=== PATIENT | male | born 1970 | race African-American/Black ===

== ENCOUNTER 2019-09-29 09:39 | Inpatient (IN) ==
[2019-09-29 10:06] LABS: URINE SOURCE CLEAN CATCH
[2019-09-29 10:08] LABS: BASO# 0.03 X1000 (0.0-0.2); BASO% 0.2 % (0.0-0.8); EOS# 0.17 X1000 (0.0-0.7); HEMATOCRIT 44.2 % (42.0-52.0); HEMOGLOBIN 14.7 g/dL (14.0-18.0); IMM GRAN# 0.04 X1000 (0.0-0.04); IMM GRAN% 0.2 % (0.0-0.5); LYMPH# 4.17 X1000 (1.2-3.4); LYMPH% 25.3 % (20.5-51.1); MCH 28.7 PG (27-31); MCHC 33.3 g/dL (33-37); MCV 86.2 FL (81-99); MONO# 1.33 X1000 (0.11-0.59); MONO% 8.1 % (1.7-9.3); MPV 10.4 FL (7.4-10.4); NEUT# 10.71 X1000 (1.4-6.5); NEUT% 65.2 % (42.2-75.2); PLT 265 X1000 (130-400); RBC 5.13 XMIL (4.7-6.1); RDW 14.5 % (11.5-14.5); WBC 16.45 X1000 (4.8-10.8)
[2019-09-29 10:11] LABS: BILIRUBIN URINE NEGATIVE (NEGATIVE); BLOOD URINE NEGATIVE (NEGATIVE); COLOR YELLOW; GLUCOSE URINE NEGATIVE (NEGATIVE); KETONE URINE NEGATIVE (NEGATIVE); LEUKOCYTES URINE NEGATIVE (NEGATIVE); NITRITE URINE NEGATIVE (NEGATIVE); PH URINE 5.5; PROTEIN URINE NEGATIVE (NEGATIVE); SP GRAVITY URINE 1.017; TURBIDITY URINE CLEAR (CLEAR); UROBILINOGEN URINE NORMAL (NORMAL)
[2019-09-29 10:13] LABS: UR EPITHELIAL CELLS <10 /HPF (<10); URINE BACTERIA NEGATIVE /HPF; URINE RBC <10 /HPF (<10); URINE WBC <10 /HPF (<10)
[2019-09-29] MEDS ORDERED: PROTONIX IV ONE (10:30)
[2019-09-29] MEDS ORDERED: SODIUM CHLORIDE 0.9% INJ ONE (10:30)
[2019-09-29] MEDS ORDERED: NS 1,000 ML IV ONE ×2 (10:30→14:48)
[2019-09-29] MEDS ORDERED: ZOFRAN IV ONE (10:30)
[2019-09-29] MEDS ORDERED: MORPHINE IV ONE ×2 (10:33→13:09)
[2019-09-29 10:45] LABS: AGAP 14; ALBUMIN 4.5 g/dL (3.5-5.0); ALKALINE PHOSPHATASE 86 U/L (32-122); BUN 18 mg/dL (8-22); CALCIUM 9.3 mg/dL (8.8-10.2); CHLORIDE 101 mmol/L (98-107); COSMO 275; CREATININE 0.8 mg/dL (0.7-1.2); ESTIMATED GFR > 60; GLUCOSE 119 mg/dL (70-104); GOT 28 U/L (10-34); GPT 33 U/L (10-44); LIPASE 25 U/L (13-60); POTASSIUM 4.6 mmol/L (3.5-5.1); SODIUM 136 mmol/L (136-145); TCO2 21 mmol/L (25-35); TOTAL PROTEIN 7.9 g/dL (6.3-8.3)
--- NOTE | 2019-09-29 11:41 | Diag Imaging Result Doc PS360 ---
EXAM: CHEST-1 VIEW HISTORY: epigastric pain TECHNIQUE: Single view COMPARISON: None. FINDINGS: The lungs are well expanded. The heart is not enlarged. The vessels are not distended. There are no infiltrates. No effusion identified. IMPRESSION: Negative exam. Electronically signed by Jose English 09/29/2019 11:39 AM
--- NOTE | 2019-09-29 11:41 | Diag Imaging Result Doc PS360 ---
EXAM: CT ABD/PELVIS W/IV CONT ONLY HISTORY: abd pain TECHNIQUE: CT abdomen and pelvis with intravenous contrast, but without oral contrast. COMPARISON: None. FINDINGS: There is fatty infiltration of the liver. No calcified gallstones or adjacent inflammation. No splenomegaly. Normal pancreas and adrenal glands. There are scattered bilateral renal cysts. The largest on the right measures 4.4 cm and the largest on the left measures 2.9 cm. There is a 2 mm nonobstructing left upper pole renal stone. No hydronephrosis. Normal aorta. There are scattered colonic diverticula and there is wall thickening with adjacent inflammation in the distal descending and sigmoid junction. Tiny amount of adjacent free air. No abscess. No bowel obstruction. Normal appendix. Urinary bladder is moderately distended and normal. Normal prostate. There is a fat filled left inguinal hernia. IMPRESSION: 1.Distal colonic diverticulitis with small focal perforation, but no abscess 2.Nonobstructing left renal stone 3.Renal cysts 4.There is fatty infiltration of the liver 5.Fat filled left inguinal hernia This report was discussed with Dr. Montoya in the emergency room on 09/29/2019 at 11:35 AM and was readback. This exam was performed using automated exposure control, adjustment of mA or kV according to patient size, and/or use of iterative reconstruction technique. Electronically signed by Jose English 09/29/2019 11:38 AM
[2019-09-29] MEDS ORDERED: CIPRO 400 MG/D5W 400 MG/200 ML IVPB IV ONE (11:56)
[2019-09-29] MEDS ORDERED: FLAGYL 500 MG/NS 500 MG/100 ML IVPB IV ONE (11:56)
--- NOTE | 2019-09-29 13:15 | PROVIDER DOCUMENTATION ---
This chart was entered by Aminata Perea Scribe, acting as scribe for Dmitri Montoya MD. HPI-Abdominal Pain/GI Problem - General Chief Complaint: Abdominal Pain Stated Complaint: ABD PAIN Time Seen by Provider: 09/29/19 09:48 Source: patient, other (SO) Allergies/Adverse Reactions: Patient Allergies Allergy/AdvReac Type Severity Reaction Status Date / Time Penicillins Allergy Unknown Verified 09/29/19 09:49 Home Medications: Home Medication List Medication Instructions Recorded Confirmed Last Taken Type AMLODIPINE/BENAZEpril [Lotrel 02/1409/29/19 09/29/19 Unknown History mg] Pravastatin Sodium 09/29/19 09/29/19 Unknown History Sildenafil Citrate 09/29/19 09/29/19 Unknown History - History of Present Illness-ABD Nature of Presenting Problems: 49 yobm presents to the ed with c/o LLQ abdominal pain that radiates across lower abdomen acute onset 0200am. pt denies n/v/d and sts had normal BM yesterday. pt is in moderate pain on exam and palpation or movement makes worse. pt does have a noted cough and sts has been present "for a while" Abdominal Pain Onset Location: reports: LLQ Pain Radiation: reports: RLQ, periumbilical Quality of Pain: reports: aching Severity in ED: reports: moderate Onset/Duration: reports: this morning (0200) Timing: reports: still present, constant, getting worse Activities at Onset: reports: sleep Exposure to sick contacts?: No Modifying Factors: improves with: nothing. worse with: coughing, movement, palpation Associated Symptoms: reports: cough. denies: back/neck pain, chest pain, co nstipation, diarrhea, fever/chills, nausea, shortness of breath, vomiting Last BM: other (yesterday and pt sts normal) Dark Stools Present?: reports: none noticed Rectal Bleeding: reports: none # of Diarrhea Episodes: 0 Rectal Pain: reports: none # of Vomiting Episodes: 0 Emesis Description: reports: none Bruising or Bleeding Gums?: No Similar Symptoms Previously?: No Review of Systems - Adult - REVIEW OF SYSTEMS - ADULT Constitutional: denies: chills, fever Eyes: reports: no symptoms reported Ears, Nose, Mouth & Throat: reports: no symptoms reported Cardiovascular: denies: chest pain, palpitations, syncope Respiratory: denies: cough, shortness of breath, wheezing Gastrointestinal: reports: see HPI, abdominal pain. denies: diarrhea, nausea, vomiting Genitourinary: reports: no symptoms reported Musculoskeletal: denies: back pain, neck pain Integumentary: reports: no symptoms reported Neurological: denies: dizziness/vertigo, headache/migraines Psychiatric: reports: no symptoms reported Endocrine: reports: no symptoms reported Hematologic/Lymphatic: reports: no symptoms reported Allergic/Immunologic: reports: no symptoms reported All Other Systems: Reviewed and Negative Past History - Adult - PAST MEDICAL HISTORY-ADULT Review of Records: reports: Old Records Reviewed, Nursing Assessment Review, Medications Reviewed, Social history reviewed & non-contributory. Major Childhood Illnesses: reports: denies history Cardiovascular: reports: HTN Respiratory: reports: denies history Gastrointestinal: reports: denies history Genitourinary: reports: denies history Musculoskeletal: reports: denies history Neurological: reports: denies history Psychiatric: reports: denies history Endocrine/Immune: reports: denies history Other Conditions: reports: denies history - PRIOR SURGERIES/PROCEDURES Surgical/Procedure History: reports: orthopedic (extremity) - IMMUNIZATION STATUS Childhood Immunizations: See Nurse Assessment Flu Vaccine: See Nurse Assessment - FAMILY HISTORY Family History: reviewed, not pertinent - SOCIAL HISTORY Smoking: quit less than 1 year Substance Use: alcohol Alcohol Use Frequency: 2-3 times a month Number of drinks per typical drinking period:: 3-4 drinks Living Situation: family Physical Exam-General - PHYSICAL EXAM-ADULT Initial Vital Signs Reviewed: Yes - CONSTITUTIONAL General Appearance: alert, moderate distress, obese - EYES Eyes: PERRL/EOMI, pink conjunctivae - HEAD, EARS, NOSE, MOUTH & THROAT HENMT: moist mucous membranes - NECK Neck: non-tender, full range of motion, supple, normal inspection - RESPIRATORY Respiratory: chest non-tender, lungs clear, normal breath sounds, other (pr oductive cough on exam) - CARDIOVASCULAR Cardiovascular: normal peripheral pulses, regular rate, rhythm - CHEST (BREASTS) Chest/Breast: deferred - GASTROINTESTINAL (ABDOMEN) Abdominal Exam: soft, guarding, tenderness. negative: rigid, rebound - GENITOURINARY Male Genitalia: deferred Rectal Exam: deferred Hemoccult Exam: deferred - LYMPHATIC Lymphatic: no adenopathy - MUSCULOSKELETAL Back Exam: normal inspection, no CVA tenderness, no vertebral tenderness Extremity: normal range of motion, non-tender, normal gait, normal inspection - SKIN Integumentary: normal color, normal turgor, warm/dry - NEUROLOGIC Neurologic: grossly normal - PSYCHIATRIC Psych/Mental Status: normal mood/affect, normal thought content, normal thought process, oriented x 3 Progress - PLAN OF CARE/RESULTS Progress/Plan/Lab Results: Vital Signs - 8 hr 09/29/19 09:46 Temperature 97.3 F L Pulse Rate 72 Respiratory Rate 20 Blood Pressure 130/87 O2 Sat by Pulse Oximetry 95 Laboratory Results - last 24 hr 09/29/19 09/29/19 09:56 10:02 WBC 16.45 H RBC 5.13 Hgb 14.7 Hct 44.2 MCV 86.2 MCH 28.7 MCHC 33.3 RDW Std Deviation 14.5 Plt Count 265 MPV 10.4 Immature Gran % (Auto) 0.2 Neut % (Auto) 65.2 Lymph % (Auto) 25.3 [place] % (Auto) 8.1 Eos % (Auto) 1.0 Baso % (Auto) 0.2 Immature Gran # (Auto) 0.04 Neut # (Auto) 10.71 H Lymph # (Auto) 4.17 H [place] # (Auto) 1.33 H Eos # (Auto) 0.17 Baso # (Auto) 0.03 Urine Source CLEAN CATCH Urine Color YELLOW Urine Turbidity CLEAR Urine pH 5.5 Ur Specific [place] 1.017 Urine Protein NEGATIVE Ur Glucose (Stick) NEGATIVE Ur Ketones (Stick) NEGATIVE Urine Blood NEGATIVE Urine Nitrite NEGATIVE Urine Bilirubin NEGATIVE Urobilinogen Dipstick NORMAL Urine Leukocytes NEGATIVE Urine WBC (Auto) <10 Urine RBC (Auto) <10 U Epithel Cells (Auto) <10 Urine Bacteria (Auto) NEGATIVE Orders Category Date Time Status Saline Loc DIRECTED Care 09/29/19 09:50 Active NPO Diet 09/29/19 09:50 Active AMYLASE [CHEM] Stat Lab 09/29/19 10:02 Received CBC WITH ELECTRONIC DIFF [HEME] Stat Lab 09/29/19 10:02 Completed COMPREHENSIVE METABOLIC PANEL [CHEM] Stat Lab 09/29/19 10:02 Received LIPASE [CHEM] Stat Lab 09/29/19 10:02 Received URINALYSIS W/POSS RFLX CULT [URINALYSIS] Stat Lab 09/29/19 09:56 Completed Result Diagrams: 09/29/19 10:02 09/29/19 10:02 - REASSESSMENT Reassessment #1 Time Reassessed: 11:18 (pain has improved ) Status: improving Reassessment Comment: at bedside - EKG 1 Time of EKG reading by physician:: 11:11 EKG Read and Signed by:: Dmitri Montoya EKG Interpretation (*Must complete 3 of following elements*): Normal Rate: 81 Rhythm: nsr Jay: normal QRS: normal AL Interval: normal ST Wave: normal - XRAY 1 XRAY: Bilateral XRAY Study: Chest Impression: See EMR Report (EXAM: CHEST-1 VIEW HISTORY: epigastric pain TECHNIQUE: Single view COMPARISON: None. FINDINGS: The lungs are well expanded. The heart is not enlarged. The vessels are not distended. There are no infiltrates. No effusion identified. IMPRESSION: Negative exam. Electronically signed by Jsoe English 09/29/2019 11:39 AM 09/29/19 1139 Interpreting Physician: Jose English MD Dictated Date/Time: 09/29/19 1138 cc: Dmitri Montoya MD; Farrukh Marks MD) - CT/MRI 1 CT Study: Abdomen, Pelvis Impression: See EMR Report (EXAM: CT ABD/PELVIS W/IV CONT ONLY HISTORY: abd pain TECHNIQUE: CT abdomen and pelvis with intravenous contrast, but without oral contrast. COMPARISON: None. FINDINGS: There is fatty infiltration of the liver. No calcified gallstones or adjacent inflammation. No splenomegaly. Normal pancreas and adrenal glands. There are scattered bilateral renal cysts. The largest on the right measures 4.4 cm and the largest on the left measures 2.9 cm. There is a 2 mm nonobstructing left upper pole renal stone. No hydronephrosis. Normal aorta. There are scattered colonic diverticula and there is wall thickening with adjacent inflammation in the distal descending and sigmoid junction. Tiny amount of adjacent free air. No abscess. No bowel obstruction. Normal appendix. Urinary bladder is moderately distended and normal. Normal prostate. There is a fat filled left inguinal hernia. IMPRESSION: 1.Distal colonic diverticulitis with small focal perforation, but no abscess 2.Nonobstructing left renal stone 3.Renal cysts 4.There is fatty infiltration of the liver 5.Fat filled left inguinal hernia This report was discussed with Dr. Montoya in the emergency room on 09/29/2019 at 11:35 AM and was readback. This exam was performed using automated exposure control, adjustment of mA or kV according to patient size, and/or use of iterative reconstruction technique. Electronically signed by Jose English 09/29/2019 11:38 AM 09/29/19 1138 Interpreting Physician: Jose English MD Dictated Date/Time: 09/29/19 1134 cc: Dmitir Montoya MD; Farrukh Marks MD) - CONSULTS/PCP/HOSPITALIST Notification #1 *Consult/PCP/Hospitalist*: dr alberto moreno Time Discussed: 12:27 (will consult) Reason/Comments: phone consult #2 Consult: hospitalist dr caceres Time Discussed: 12:23 Reason/Comments: phone consult Consult Disposition: Admit #3 Consult: Dr Perea called back Time Discussed: 13:13 (will speak with dr caceres ) Reason/Comments: wants pt to be transfered to [facility] Consult Disposition: Admit (advised admit in [facility]) Departure - Departure Date of Disposition Decision: 09/29/19 Time of Disposition Decision: 12:00 DIAGNOSIS: Diverticulitis, Abdominal pain, Diverticulitis of colon with perforation Disposition: ADMITTED INPATIENT 09 Certified Medical Emergency: Emergent Condition: Stable Referrals and Follow-Ups: Farrukh Marks MD [Primary Care Provider] - - Critical Care Note This patient required my direct & personal management of CC.: No Attestation - Physician/ PAUL Attestation Patient care was provided by Advanced Practice Provider:: No The physician spent face to face time with patient:: Yes Advanced Practice Provider documentation review:: Supervising physician onsite and consulted in the evaluation and care of this patient. The physician did have a face to face encounter with the patient. This chart was documented by the indicated scribe, (Aminata Perea Scribe) and accurately reflects the services I performed and decisions made by me, Dmitri Montoya MD, as attested by the provider's signature.
--- NOTE | 2019-09-29 13:43 | EKG Report ---
Test Performed on : 09/29/2019 11:11:40 AM Test Reason : ER Blood Pressure : / mmHG Vent. Rate : 081 BPM Atrial Rate : 081 BPM P-R Int : 138 ms QRS Dur : 090 ms QT Int : 376 ms P-R-T Axes : 033 025 -18 degrees QTc Int : 436 ms Normal sinus rhythm. Normal ECG No previous ECGs available Unconfirmed Result
--- NOTE | 2019-09-29 14:13 | HISTORY AND PHYSICAL ---
CHIEF COMPLAINT: Abdominal pain. HISTORY OF PRESENT ILLNESS: This is a 49-year-old male with hypertension and dyslipidemia, presenting with abdominal pain. Most of his pain is in his left lower quadrant. It is sharp. It is associated with worsening with movement, eating. He has had some abdominal distention. No nausea, vomiting. No diarrhea. He does have constipation, which is chronic and has been worse over the last couple of months. His workup in the ER revealed leukocytosis of around 16,000. He is tender in his left lower quadrant with some mild guarding. No rebound, and CT confirmed sigmoid diverticulitis with a small perforation. After discussion with Dr. Perea, he prefers transferring the patient to the main hospital for further evaluation. PAST MEDICAL HISTORY: 1. Hypertension. 2. Dyslipidemia. 3. Presumably ED. PAST SURGICAL HISTORY: Denies. SOCIAL HISTORY: He smokes about half a pack a day; he has done that for 35 years. Occasional alcohol. He works as an journeyman electrician. ALLERGIES: Penicillin. REVIEW OF SYSTEMS: No weight loss, weight gain. No chest pain. No shortness of breath. No dysuria. No prostatism. No hematochezia. No melena. Otherwise negative x10 point review of systems. PHYSICAL EXAMINATION: VITAL SIGNS: Blood pressure is 150/87, heart rate of 70, respiratory rate of 18, temperature was 97.3 degrees, weight 215 pounds, 95% sat on room air. GENERAL: A well-developed male in mild distress. HEENT: Head: Normocephalic, atraumatic. Eye: Pupils equal, round, reactive to light. Extraocular moves were intact. Ear/Nose/Throat: He had moist mucous membranes. NECK: Supple. CARDIOVASCULAR: Regular rate and rhythm. PULMONARY: Bilateral breath sounds. Clear to auscultation. GASTROINTESTINAL: Soft, nontender, nondistended. Bowel sounds are positive. He does have tenderness in his left lower quadrant and right lower quadrant, and some voluntary guarding. EXTREMITIES: No clubbing or cyanosis. NEUROLOGIC: Nonfocal. MUSCULOSKELETAL: 4/5. IMAGING AND LABORATORY DATA: White count 16, hemoglobin and hematocrit 14 and 44, platelets 265,000. Basic was normal. UA was normal. CT showed sigmoid diverticulitis. ASSESSMENT: A 49-year-old male with hypertension and dyslipidemia, presenting with acute sigmoid diverticulitis with a small perforation. 1. Acute sigmoid diverticulitis. We will continue intravenous fluids, nothing by mouth status, empiric antibiotics, and follow. Surgery will be consulted, although I think conservative management should be sufficient. 2. Hypertension. We will continue to monitor. Continue his regular medications as tolerated. 3. Disposition. Pending his clinical status, maybe home. It may be a couple of days before he gets home. cc: Danny Chadwick MD
[2019-09-29] MEDS: NS 1,000 ML IV SCH (14:17)
[2019-09-29] MEDS ORDERED: ZOFRAN IV PRN (14:48)
[2019-09-29] MEDS ORDERED: MORPHINE IV PRN (14:48)
[2019-09-29] MEDS ORDERED: TYLENOL PO PRN (14:48)
[2019-09-29] MEDS: TORADOL IV SCH (17:58)
[2019-09-29] MEDS: OFIRMEV 1000 MG/ISOTONIC SOLN 1,000 MG/100 ML BOTTLE IV SCH (17:58)
[2019-09-29] MEDS: MORPHINE IV PRN ×2 (17:59→21:34)
--- NOTE | 2019-09-29 20:30 | CONSULTATION ---
DATE OF CONSULTATION: 09/29/2019 HISTORY OF PRESENT ILLNESS: Mr. Rudy Soto is an overweight, 49-year-old black male who was awakened at 2 a.m. this morning with abdominal pain localized to his left lower quadrant. This pain was persistent and severe, and he initially presented to [facility] Emergency Department. As part of his evaluation, he underwent a CT scan of his abdomen and pelvis which suggested acute complicated sigmoid diverticulitis with a small amount of free air. He was transferred from [facility] to [facility] for surgical evaluation and possible surgery in the future. He has never had pain like this before. PAST MEDICAL HISTORY: Hypertension. He has had an extremity orthopedic procedure in the past. MEDICATIONS: 1. Amlodipine 5/20 mg. 2. Pravastatin. 3. Sildenafil. ALLERGIES: Penicillin. SOCIAL HISTORY: Family was at the bedside. He works as an auto electrician. He uses alcohol 2 to 3 times a month. He was a smoker; he quit less than a year ago. REVIEW OF SYSTEMS: A 14-point review of systems was performed and was essentially negative except for the History of Present Illness. FAMILY HISTORY: Reviewed with the patient and was not contributory. PHYSICAL EXAMINATION: Vital signs: His temperature is 97.3 degrees, pulse 72, blood pressure 130/87, O2 saturation 95%. General: Mr. Soto is awake and cooperative. He is an overweight, middle-aged black male. He is in no acute distress, but in obvious abdominal discomfort. HEENT: No jaundice. No oral lesions. Satisfactory dentition. No cervical or supraclavicular lymphadenopathy. Heart: Regular rate. Lungs: Clear to auscultation and percussion bilaterally. Abdomen: Protuberant. It was tender to palpation in the left lower quadrant. He has no evidence of hernia or previous scar. Rectal: Exam was not performed. Extremities: He does have palpable peripheral pulses. No peripheral edema. Neurological: He is alert and oriented x3 and appropriate. CT scan suggested acute sigmoid diverticulitis with a tiny amount of free air. White blood cell count is 16.45. Electrolytes are within normal limits. His BUN is 18 and creatinine 0.8. Glucose was 119. IMPRESSION: Acute complicated sigmoid diverticulitis with small amount of free air beside the sigmoid colon. PLAN: He is receiving intravenous Cipro and Flagyl because of his allergy to penicillin. He is n.p.o. for now. cc: MD Tashi Rain MD
[2019-09-29] MEDS: FLAGYL 500 MG/NS 500 MG/100 ML IVPB IV SCH (20:58)
[2019-09-29] MEDS: CIPRO 400 MG/D5W 400 MG/200 ML IVPB IV SCH (22:31)
[2019-09-30] MEDS: OFIRMEV 1000 MG/ISOTONIC SOLN 1,000 MG/100 ML BOTTLE IV SCH ×5 (00:26→23:24)
[2019-09-30] MEDS: TORADOL IV SCH ×5 (00:27→23:24)
[2019-09-30] MEDS: FLAGYL 500 MG/NS 500 MG/100 ML IVPB IV SCH ×4 (01:21→19:00)
[2019-09-30] MEDS: MORPHINE IV PRN ×3 (05:08→21:26)
[2019-09-30 06:31] LABS: BASO# 0.02 X1000 (0.0-0.2); BASO% 0.1 % (0.0-0.8); EOS# 0.11 X1000 (0.0-0.7); EOS% 0.7 % (0.0-10.0); HEMATOCRIT 42.7 % (42.0-52.0); HEMOGLOBIN 14.2 g/dL (14.0-18.0); IMM GRAN# 0.06 X1000 (0.0-0.04); IMM GRAN% 0.4 % (0.0-0.5); LYMPH# 3.09 X1000 (1.2-3.4); LYMPH% 18.7 % (20.5-51.1); MCH 28.9 PG (27-31); MCHC 33.3 g/dL (33-37); MCV 86.8 FL (81-99); MONO# 1.44 X1000 (0.11-0.59); MONO% 8.7 % (1.7-9.3); MPV 10.7 FL (7.4-10.4); NEUT# 11.82 X1000 (1.4-6.5); NEUT% 71.4 % (42.2-75.2); PLT 257 X1000 (130-400); RBC 4.92 XMIL (4.7-6.1); RDW 14.5 % (11.5-14.5); WBC 16.54 X1000 (4.8-10.8)
[2019-09-30] MEDS: CIPRO 400 MG/D5W 400 MG/200 ML IVPB IV SCH ×2 (11:54→23:24)
[2019-09-30] MEDS: NS 1,000 ML IV SCH ×2 (12:12→21:27)
[2019-09-30] MEDS ORDERED: SODIUM CHLORIDE 0.9% INJ SCH (17:45)
[2019-09-30] MEDS: PROTONIX IV SCH (18:04)
--- NOTE | 2019-09-30 18:43 | PROGRESS NOTE ---
DATE: 09/29/2019 INTERVAL HISTORY: No acute events overnight. SUBJECTIVE: Mr. Soto states he is feeling better. He denies any nausea, vomiting, chest pain, shortness of breath. His abdominal pain is also better. We discussed about diverticulitis, perforation. We discussed about IV fluids, IV antibiotics. We discussed about nonoperative management and awaiting surgical recommendation. VITAL SIGNS: Temperature 97.9 degrees, pulse 65, respiratory rate 17, blood pressure 130/70. He is saturating 100% in room air. PHYSICAL EXAMINATION: General: Obese, not in acute distress. Oral cavity: Moist. Lungs: Air entry bilaterally equal. No wheeze, rhonchi, crackles. He does have pigmentation of active tobacco abuse. Abdomen: Soft. There is tenderness in the left lower quadrant without any rebound or rigidity. Active bowel sounds. Extremities: He does not have lower extremity edema. Neurologic: He is alert and oriented x3. His family members and friends are at bedside. LABS: Suggestive of persistent leukocytosis. Normal hemoglobin. Normal platelet count. MICROBIOLOGY: Blood cultures are in Lab. IMAGING: No new imaging. ASSESSMENT AND PLAN: 1. Acute sigmoid diverticulitis with microperforation. Continue intravenous fluids, intravenous ciprofloxacin, intravenous Flagyl. Continue conservative management and serial abdominal examination. I educated him about features of worsening abscess or worsening perforation with generalized peritonitis including, but not limited to, worsening abdominal pain, nausea, vomiting, fevers and chills. I will also keep him on intravenous morphine. General surgical recommendations are appreciated. 2. Active tobacco abuse. I counseled about smoking cessation. 3. Gastrointestinal prophylaxis. He has been started on Ketoralac, so to prevent gastrointestinal bleed, I will start him on intravenous pantoprazole. 4. I will also start him on deep venous thrombosis prophylaxis. DISPOSITION: I will continue to monitor the patient inside the hospital. Plan of care discussed with the patient and his questions have been answered. cc: Tashi Murray MD
--- NOTE | 2019-09-30 19:30 | PROGRESS NOTE ---
DATE: 09/30/2019 Mr. Soto is admitted with acute complicated sigmoid diverticulitis with a little bit of free air close to his sigmoid colon with an elevated white blood cell count and left-sided pain. He has been on IV Cipro and Flagyl because of a penicillin allergy. Clinically he says he feels better today but his white blood cell count is the same at 16.5. His heart rate is 65, blood pressure 135/71, O2 saturation 99%. He is afebrile. We will allow him to have clear liquids because he is asking for food. He needs to stay on his IV antibiotics and clear liquids for now. cc: MD Tashi Rain MD
[2019-10-01] MEDS: FLAGYL 500 MG/NS 500 MG/100 ML IVPB IV SCH ×4 (01:56→18:43)
[2019-10-01] MEDS: NS 1,000 ML IV SCH ×2 (06:25→21:41)
[2019-10-01] MEDS: OFIRMEV 1000 MG/ISOTONIC SOLN 1,000 MG/100 ML BOTTLE IV SCH ×3 (06:25→18:17)
[2019-10-01] MEDS: TORADOL IV SCH ×3 (06:25→18:14)
[2019-10-01 06:56] LABS: AGAP 14; BUN 9 mg/dL (8-22); CHLORIDE 100 mmol/L (98-107); COSMO 274; CREATININE 0.9 mg/dL (0.7-1.2); ESTIMATED GFR > 60; GLUCOSE 90 mg/dL (70-104); MAGNESIUM 2.2 mg/dL (1.5-2.7); POTASSIUM 4.4 mmol/L (3.5-5.1); SODIUM 138 mmol/L (136-145); TCO2 24 mmol/L (25-35)
[2019-10-01 07:09] LABS: BASO# 0.03 X1000 (0.0-0.2); BASO% 0.2 % (0.0-0.8); EOS# 0.11 X1000 (0.0-0.7); EOS% 0.8 % (0.0-10.0); HEMATOCRIT 40.4 % (42.0-52.0); HEMOGLOBIN 13.4 g/dL (14.0-18.0); IMM GRAN# 0.03 X1000 (0.0-0.04); IMM GRAN% 0.2 % (0.0-0.5); LYMPH# 2.83 X1000 (1.2-3.4); LYMPH% 21.2 % (20.5-51.1); MCH 28.8 PG (27-31); MCHC 33.2 g/dL (33-37); MCV 86.7 FL (81-99); MONO# 1.26 X1000 (0.11-0.59); MONO% 9.4 % (1.7-9.3); MPV 11.3 FL (7.4-10.4); NEUT# 9.08 X1000 (1.4-6.5); NEUT% 68.2 % (42.2-75.2); PLT 238 X1000 (130-400); RBC 4.66 XMIL (4.7-6.1); RDW 14.5 % (11.5-14.5); WBC 13.34 X1000 (4.8-10.8)
[2019-10-01] MEDS: CIPRO 400 MG/D5W 400 MG/200 ML IVPB IV SCH (11:46)
--- NOTE | 2019-10-01 14:34 | GENERAL SURGERY PROGRESS NOTE ---
DATE: 10/01/2019 SUBJECTIVE: The patient is doing well. He has less pain. No nausea or vomiting. He is hungry. He is passing gas. OBJECTIVE: He is afebrile. Vital signs are stable.General: He is awake, alert, oriented x3. No acute distress. GI: Soft, minimally tender, nondistended. LABORATORY: White cell count 13,000, hemoglobin 13. Electrolytes reviewed and unremarkable. ASSESSMENT/PLAN: 49-year-old male with contained perforation of diverticulitis. He is improving. We will advance him to a soft diet. Continued IV antibiotics for now. cc: MD Tashi Kumar MD
[2019-10-01] MEDS: PROTONIX IV SCH (18:17)
[2019-10-01] MEDS: LOVENOX SUBQ SCH (18:17)
--- NOTE | 2019-10-01 19:29 | PROGRESS NOTE ---
DATE: 10/01/2019 INTERVAL HISTORY: No acute events overnight. He was started on a diet. He tolerated a liquid diet well, and his diet was advanced to a heart-healthy diet. He denies any nausea, vomiting, or worsening abdominal pain. He is passing gas. He has not had any bowel movement. We discussed about monitoring him overnight at least, and awaiting the surgical team's recommendation. VITAL SIGNS: Currently, temperature 99.1, pulse 89, respiratory rate 18, blood pressure 180/90. He is saturating 98% on room air. PHYSICAL EXAMINATION: General: Not in acute distress. HEENT: Oral cavity is moist. Lungs: Air entry bilaterally equal. No wheeze or crackles. Heart: Normal no. No murmur or gallop. Abdomen: Soft. Mild tenderness, left lower quadrant. Extremities: No lower extremity edema. Neurologic: He is alert oriented x3. LABS: Suggestive of improving leukocytosis, normocytic anemia, normal platelet count, normal electrolytes. MICROBIOLOGY: Blood culture has not shown any growth. IMAGING: No new imaging. ASSESSMENT AND PLAN: 1. Acute sigmoid diverticulitis with contained microperforation. Continue intravenous ciprofloxacin, intravenous Flagyl and nonsurgical management. He is tolerating a diet well. Awaiting a bowel movement. General surgical team on board. 2. Active tobacco abuse. He was counseled about smoking cessation. 3. Gastrointestinal prophylaxis. I will stop ketorolac to prevent a gastrointestinal bleed. I will keep him on pantoprazole. Also started him on MiraLAX to avoid constipation and enoxaparin for DVT prophylaxis. DISPOSITION: Anticipating discharge in next 24 hours. Plan of care discussed with the patient. He also wanted me to fill out insurance paperwork, which I did. cc: Tashi Murray MD
[2019-10-01] MEDS: MIRALAX PO SCH (23:30)
[2019-10-02] MEDS: CIPRO 400 MG/D5W 400 MG/200 ML IVPB IV SCH ×3 (00:20→23:09)
[2019-10-02] MEDS: FLAGYL 500 MG/NS 500 MG/100 ML IVPB IV SCH ×4 (01:20→18:46)
[2019-10-02] MEDS: MIRALAX PO SCH ×2 (08:56→21:22)
[2019-10-02] MEDS: ULTRAM PO PRN ×2 (08:57→18:17)
--- NOTE | 2019-10-02 09:59 | GENERAL SURGERY PROGRESS NOTE ---
DATE: 10/02/2019 SUBJECTIVE: The patient says he feels a little better. Still having some pain in the left lower quadrant. He is eating. He is passing gas. No bowel movement yet. OBJECTIVE: Vital Signs: He is afebrile. Vital signs are stable. General: He is awake, alert, oriented x3. No acute distress. GI: Soft, mildly tender in the left lower quadrant. No rebound or guarding. LABORATORY DATA: None today. ASSESSMENT AND PLAN: A 49-year-old male with diverticulitis and contained perforation. We will continue his Cipro and Flagyl. CBC is pending tomorrow. Overall, somewhat improved over the weekend. cc: MD Tashi Kumar MD
[2019-10-02] MEDS: TYLENOL PO PRN ×2 (10:59→21:22)
[2019-10-02] MEDS: LACTULOSE PO SCH ×2 (18:11→21:22)
[2019-10-02] MEDS: LOVENOX SUBQ SCH (18:12)
[2019-10-02] MEDS: DULCOLAX PR SCH (18:14)
[2019-10-03] MEDS: FLAGYL 500 MG/NS 500 MG/100 ML IVPB IV SCH ×5 (00:20→22:14)
[2019-10-03] MEDS: DULCOLAX PR SCH ×3 (05:01→22:15)
[2019-10-03] MEDS: ULTRAM PO PRN ×3 (05:15→18:35)
[2019-10-03 07:39] LABS: BASO# 0.04 X1000 (0.0-0.2); BASO% 0.3 % (0.0-0.8); EOS# 0.13 X1000 (0.0-0.7); EOS% 1.1 % (0.0-10.0); HEMATOCRIT 41.8 % (42.0-52.0); IMM GRAN# 0.02 X1000 (0.0-0.04); IMM GRAN% 0.2 % (0.0-0.5); LYMPH# 3.63 X1000 (1.2-3.4); MCH 28.8 PG (27-31); MCHC 33.5 g/dL (33-37); MONO# 1.25 X1000 (0.11-0.59); MONO% 10.7 % (1.7-9.3); MPV 11.3 FL (7.4-10.4); NEUT# 6.65 X1000 (1.4-6.5); NEUT% 56.7 % (42.2-75.2); PLT 284 X1000 (130-400); RBC 4.86 XMIL (4.7-6.1); RDW 14.2 % (11.5-14.5); WBC 11.72 X1000 (4.8-10.8)
[2019-10-03 07:59] LABS: AGAP 12; BUN 9 mg/dL (8-22); CALCIUM 9.2 mg/dL (8.8-10.2); CHLORIDE 100 mmol/L (98-107); COSMO 273; CREATININE 0.9 mg/dL (0.7-1.2); ESTIMATED GFR > 60; GLUCOSE 107 mg/dL (70-104); MAGNESIUM 2.3 mg/dL (1.5-2.7); POTASSIUM 4.1 mmol/L (3.5-5.1); SODIUM 137 mmol/L (136-145); TCO2 25 mmol/L (25-35)
[2019-10-03] MEDS: LACTULOSE PO SCH ×2 (09:22→22:14)
[2019-10-03] MEDS: MIRALAX PO SCH ×2 (09:22→22:14)
[2019-10-03] MEDS: CIPRO 400 MG/D5W 400 MG/200 ML IVPB IV SCH (11:23)
--- NOTE | 2019-10-03 11:30 | PROGRESS NOTE ---
DATE: 10/03/2019 INTERVAL HISTORY: He has had multiple bowel movements. SUBJECTIVE: Mr. Soto is feeling fine. Denies nausea, vomiting, abdominal pain. He was wondering if he could be discharged and I told him that I would wait surgical team's recommendations. VITAL SIGNS: Temperature 98.4 degrees, pulse 72, respiratory rate 16, blood pressure 150/77, saturating 98% on room air. PHYSICAL EXAMINATION: General: Obese, not in acute distress. HEENT: Oral cavity is moist. Lungs: Air entry bilaterally equal. No wheeze, rhonchi, crackles. Cardiovascular: S1 and S2 normal. No murmur or gallop. Abdomen: Soft. Tender in left lower quadrant without guarding or rigidity. Tenderness has decreased since presentation. Extremities: No lower extremity edema. Neurologic: He is alert oriented x3. I counseled him about weight reduction. LABORATORY DATA: Labs suggestive of improving leukocytosis. Normal hemoglobin, normal platelet count. Normal electrolytes. No positive microbiological or new imaging. ASSESSMENT AND PLAN: 1. Acute sigmoid diverticulitis with contained microperforation. Continue intravenous ciprofloxacin, intravenous Flagyl, tramadol as needed as well as bowel regimen to avoid constipation. General Surgery team on board. He would need outpatient followup. I counseled him about weight reduction, eating green leafy vegetables and fruits in his diet and weight reduction. 2. Active tobacco abuse. He was counseled about smoking cessation. 3. Others. Continue lactulose for constipation with MiraLAX. 4. Morbid obesity: He was counselled about weight reduction, increasing green leafy vegetable intake and regular physical activity. 4. Disposition. I had a discussion about Mr. Soto's clinical condition with the surgical team. Mr. Soto has improved clinically over the last few days, however, he still has some leukocytosis and left lower quadrant tenderness, so we decided to keep him at least 1 more day for IV antibiotics. I will repeat his blood count tomorrow. If his tenderness is better, blood count is better, then he could be discharged home on oral antibiotics with outpatient General Surgery follow-up within 5 to 7 days. He would need antibiotics and pain medication prescriptions. cc: MD SAVANNA Valenzuela
--- NOTE | 2019-10-03 13:23 | PROGRESS NOTE ---
DATE: 10/03/2019 Mr. Rudy Soto is a 49-year-old, overweight, black male, hospitalized with acute complicated sigmoid diverticulitis with a pocket of free air along his sigmoid colon. He has been receiving IV antibiotics. He does have a penicillin allergy, so we have been using Cipro and Flagyl, and clinically he has improved. His white blood cell count has steadily gone down from 16.5 to 11.72 over the last 3 days. Clinically, he says he feels better, but he still has some tenderness involving his left lower quadrant. He is on a heart healthy diet. His heart rate is 50, blood pressure 152/82, O2 saturation 97%, he is afebrile. Because of his ongoing symptoms and elevated white blood cell count, we are going to continue IV antibiotics. He will need to be sent home on p.o. antibiotics for at least another week after discharge. I need to see him in our outpatient offices a week after discharge. cc: MD Tashi Rain MD
[2019-10-03] MEDS: LOVENOX SUBQ SCH (18:31)
[2019-10-04] MEDS: CIPRO 400 MG/D5W 400 MG/200 ML IVPB IV SCH (00:39)
[2019-10-04] MEDS: ULTRAM PO PRN (00:40)
[2019-10-04] MEDS: FLAGYL 500 MG/NS 500 MG/100 ML IVPB IV SCH ×2 (05:47→12:58)
[2019-10-04 07:03] LABS: BASO# 0.04 X1000 (0.0-0.2); BASO% 0.4 % (0.0-0.8); EOS# 0.15 X1000 (0.0-0.7); EOS% 1.6 % (0.0-10.0); HEMATOCRIT 44.2 % (42.0-52.0); HEMOGLOBIN 14.7 g/dL (14.0-18.0); IMM GRAN# 0.02 X1000 (0.0-0.04); IMM GRAN% 0.2 % (0.0-0.5); LYMPH# 2.95 X1000 (1.2-3.4); LYMPH% 31.4 % (20.5-51.1); MCH 28.9 PG (27-31); MCHC 33.3 g/dL (33-37); MONO# 0.94 X1000 (0.11-0.59); MPV 11.1 FL (7.4-10.4); NEUT# 5.28 X1000 (1.4-6.5); NEUT% 56.4 % (42.2-75.2); PLT 302 X1000 (130-400); RBC 5.08 XMIL (4.7-6.1); RDW 14.4 % (11.5-14.5); WBC 9.38 X1000 (4.8-10.8)
[2019-10-04 12:06] VITALS: BP 144/76
[2019-10-04] MEDS: MIRALAX PO SCH (12:57)
[2019-10-04] MEDS: LACTULOSE PO SCH (12:57)
[2019-10-04] MEDS: DULCOLAX PR SCH (12:58)
--- NOTE | 2019-10-04 14:54 | PROGRESS NOTE ---
DATE: 10/04/2019 Mr. Rudy Soto clinically has improved daily on IV antibiotics for acute complicated sigmoid diverticulitis with evidence of free air locally along the sigmoid colon. His white blood cell count is now normal, today, and his left lower quadrant abdominal pain is essentially resolved. He is tolerating the diet. He has been on IV Cipro and Flagyl because of a penicillin allergy. He will need to be discharged home on 10 days worth of either Cipro or Levaquin with Flagyl. I talked to him about how important it is to continue his p.o. antibiotics. I want to see him in a week and have agreed to fill out a disability form for him. cc: MD Tashi Rain MD
--- NOTE | 2019-10-15 20:40 | DISCHARGE SUMMARY ---
ADMISSION DATE: 09/29/2019 DISCHARGE DATE: 10/04/2019 FINAL DISCHARGE DIAGNOSES: 1. Acute sigmoid diverticulitis with a microperforation. 2. Tobacco dependence. 3. Morbid obesity. CONSULTATIONS: General Surgery consultation with Dr. Perea. IMAGING: CT of the abdomen and pelvis which revealed distal colonic diverticulitis with a small focal perforation. No abscess. Fatty liver infiltration of the liver. HOSPITAL COURSE: Mr. Soto is a 49-year-old obese male who presented to the ER with a chief complaint of abdominal pain. A CT of the abdomen and pelvis was done that revealed sigmoid diverticulitis with a focal microperforation. The patient was admitted to the hospitalist service and made NPO. Blood cultures were obtained and the patient was started on IV antibiotics and IV fluids. General Surgery was consulted for further recommendations. The patient was monitored closely on IV fluids and antibiotic therapy. Slowly the patient's symptoms improved and also his leukocytosis improved with conservative management. The patient's diet was slowly advanced as the pain and leukocytosis improved. The patient was eventually placed on a GI soft diet which she tolerated without any difficulty. Also, the patient's pain had improved. On the day of discharge, the patient was noted to have a white blood cell count of 9.3. The patient was advised that he would need to continue with antibiotics for a total of 10 days. The patient was ultimately cleared for discharge home. DISCHARGE MEDICATIONS: 1. Flagyl 500 mg oral 3 times a day. 2. Cipro 500 mg oral twice a day. 3. Lotrel 1 capsule oral daily. 4. Lactulose 30 mL oral twice a day p.r.n. for constipation. 5. Pravastatin 80 mg p.o. at bedtime. 6. Tramadol 50 mg oral every 6 hours p.r.n. for pain. DISCHARGE DIET: GI soft diet, low sodium. ACTIVITY: As tolerated. FOLLOWUP INSTRUCTIONS: The patient will need to follow up with Dr. Perea on 10/11/2019 at 2:30 p.m. The patient will need to follow up with Dr. Farrukh Marks in 2 weeks. cc: MD Charla Avila MD Siddharth Patel, MD
== END 2019-10-04 15:24 | disposition home or self-care (01) | DRG 392 ==
LOC: P.ED 09:39 → 4N 09:40 → SUATTDRO 09:40
PROVIDERS: ADMIT Internal Medicine; ATTEND Internal Medicine